=== PATIENT | female | born 1970 | race Caucasian/White ===

== ENCOUNTER 2016-09-06 05:51 | Emergency (ER) | payer MEDICARE, MEDICAID ==
[~2016-09-06] VITALS: Ht 167.6 cm; Wt 63.6 kg
[~2016-09-06 05:51] MED LIST: CELE200 PO; LISI10TA9 PO; OXYC-176 PO; QTP25T PO; RANI-323 PO; [UNRECOGNIZED DRUG - CODE] PO
[2016-09-06 05:59] VITALS: BP 131/90; PULSE 91; RESP 24; O2SAT 97
--- NOTE | 2016-09-06 06:07 | ED.REPORT ---
HPI-Back Pain Under 40 Date of Service Sep 06, 2016 ED Provider: Frieda Donovan MD The patient is a 46 year old female w/ a hx of severe scoliosis who presents to the ED via EMS due to lower back pain onset this morning. She had an appointment with a new physical therapist yesterday at 1430. She told the physical therapist what to do with her back but the physical therapist, "did not listen." When she left the office, the pain was bearable. From the time she got home from her appointment yesterday to this morning, the pain has gotten progressively worse. Now, she can barely walk and had to crawl to get to the bathroom at her house. She has never experienced pain like this before. She denies pain radiation, diarrhea, and bowel or bladder incontinence. Patient is moaning and tearful. She has taken one Percocet this morning. She has a prescription for Gabapentin and took one, "sometime during the night." Neither were effective in reducing her pain. 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 Dr. Diya Woods is her PCP [facility] in [facility]. Nursing Notes Stated Complaint: BACK PAIN Chief Complaint: Back Pain or Injury Nursing Notes Reviewed: Yes Allergies: Coded Allergies: No Known Allergies (Unverified Allergy, Unknown, 01/06/14) Scheduled Celecoxib-Expunged Drug, Do Not Renew! (Celecoxib-Expunged Drug, Do Not Renew!) 200 Mg Capsule 200 MG PO DAILY Lisinopril-Expunged Drug, Do Not Renew! (Lisinopril-Expunged Drug, Do Not Renew! ) 10 Mg Tablet 10 MG PO DAILY Methadone-Expunged Drug, Do Not Renew! (Methadone-Expunged Drug, Do Not Renew!) 10 Mg/1 Ml Oral.conc 10 MG PO Q3-4H QUEtiapine-Expunged Drug, Do Not Renew! (SEROquel-Expunged Drug, Do Not Renew!) 25 Mg Tablet 25 MG PO HS Ranitidine Hcl-Expunged Drug, Do Not Renew! (Acid Certified [employer] 150-Expunged Drug, Do Not Renew!) 150 Mg Tablet 150 MG PO BID Scheduled PRN Oxycodone/APAP-Expunged Drug, Do Not Renew! (Percocet 5/325-Expunged Drug, Do Not Renew!) 1 Each Tablet 1 TAB PO Q4 PRN PRN General Time Seen by MD: 06:30 Chief Complaint Back pain Hx Obtained From: Patient Arrived By: Ambulance Sudden in Onset?: Yes Onset Occurred: 1 - 4 hours ago Symptom Duration: Since onset Radiation: : Does not radiate Severity: Current: Severe Recent Healthcare: Recent doctor visit Similar Sx Previous: Yes Past Medical History Past Medical History scoliosis VSD Past Surgical History 2 cardiac open heart surgeries as a child for VSD Smoking History Unknown if Ever Smoker Social History hx of meth use outpatient treatment sober for the last year no pain contracts not on narcotics Drug Use: In recovery, THC (daily use) Ambulatory Status Independent Review of Systems GI: Denies: Diarrhea Female: Denies: Dysuria, Incontinence Musculoskeletal: Reports: Back pain Complete sys rev & neg: except as marked. Physical Exam Physical Exam Notes: Initial Vital Signs Vital Signs (First) Date Time Temp Pulse Resp B/P Pulse Ox O2 Delivery O2 Flow Rate FiO2 09/06/16 05:59 36.5 91 24 131/90 97 Room Air Initial VS: Reviewed Head / Eyes: Atraumatic, Normocephalic, PERRL ENT: Mucous membranes moist, Conjunctiva normal, No scleral icterus Respiratory: Breath sounds normal, Clear to auscultation, No respiratory distress Cardiovascular: Heart sounds normal, Intact distal pulses Abdomen / GI: Soft, Non-tender, No guarding, No rebound, No distention General/Constitutional: Awake, Alert acute distress appropriate cooperative good eye contact poor dentition Flank / Spine / Paraspinal: Positive: Lumbar paraspinal tend... Muscle Spasm / ROM: Positive: Lumbar area spasm excoriations on back from scratching significant paraspinal muscle spasm no rashes below after pain meds, able to get up w/ use of support and chair Neurologic: Oriented X3, Speech NL, No sensory deficits no neuropathy Interpretation & Diagnostics Interpretation & Diagnostics: Re-Eval/Medical Decision Re-Evaluation/Progress #1: Time of Eval: 07:45 Patient Status: Moderate relief, Pain improved Re-Evaluation/Progress Note: Pt rechecked. Pain is improved after pain medication. Re-Evaluation/Progress #2: Time of Eval: 08:05 Patient Status: Condition improved, Moderate relief Re-Evaluation/Progress Note: Pt rechecked. She is slightly drowsy. She is able to get up w/ use of support and chair. Discussed pain management and plan for treatment. F/U and RTER warnings given. Pt understands and agrees with plan. Counseled Regarding: Diagnosis, Lab results, Need for follow-up, When/why to return to ED Discharge & Departure Impression: Primary Impression: Muscle spasm of back Additional Impression: Lumbar back pain Ruled Out: Radicular pain of lower extremity, Cauda equina syndrome Disposition: Home All VS Reviewed: Yes Condition: Stable Additional Instructions: You have musculoskeletal back pain. There is no evidence of acute nerve injury or need for any emergent surgical intervetion. Take naprosen 500mg at morning and at night for a whole week for inflammation and pain. After than you can use it as needed. It is similar to ibuprofen so don't take them together. It is a little easier on your tummy and hopefully won 't cause stomach issues for you . I am also writing you a prescription for Percocet for the severe pain and spasm. I suspect that today will be pretty painful and that you will start getting better by tomorrow. DO use both Ice and heat to help with the muscle spasm. DO try to be as active as possible. You doctor prescribed cyclobenzaprine for muscle relaxation and you have this prescription ready to pickle maker. This is the same medication I was going to recommend for you. Please use it as needed for the spasm. Use the walker I have prescribed to help with getting around. Keep it around after you are better, it will likely come in handy in the future as well. Do not drive or operate any machinery on this medication. If you develop any new or worsening symptoms Return to the Emergency Department. I hope you feel better soon. Referrals: [facility] Scribe Attestation Portion of this note were transcribed by Aaliyah Thayer. I, Dr. Donovan, personally performed the history, physical exam, and medical decision-making: I reviewed and confirmed the accuracy for the information in the transcribed note. Signed by: saulo Lehman, 09/06/16 [id number] copies to: [facility] Frieda Donovan MD Sep 06, 2016 06:07 Aaliyah Thayer Sep 06, 2016 06:14
[2016-09-06] MEDS ORDERED: Ketorolac 30 mg/mL 2 mL Inj IM ONE (06:30)
[2016-09-06 07:14] VITALS: BP 122/75; PULSE 78; RESP 12; O2SAT 100
[2016-09-06] MEDS ORDERED: NAPR500T PO (08:30)
[2016-09-06] MEDS ORDERED: OXYC1TAB24 PO (08:30)
== END 2016-09-06 09:26 | disposition home or self-care (01) ==
LOC: EDBD 05:51 → EDUNIT# 05:51 → SED 05:51
DX: M62.830 Muscle spasm of back (principal); M54.5 Low back pain; Z87.39 Personal history of other diseases of the musculoskeletal system and connective tissue; Z87.74 Personal history of (corrected) congenital malformations of heart and circulatory system
CPT/HCPCS: 96372; 99283; J1885